=== PATIENT | male | born 1985 | race Caucasian/White ===

== ENCOUNTER 2021-10-06 21:33 | Emergency (ER) | payer OTHER ==
[2021-10-06 21:53] VITALS: RESP 16; TEMP 98.2
--- NOTE | 2021-10-06 22:28 | ED ---
General Adult HPI - General Source: patient Mode of arrival: ambulatory Limitations: no limitations <Thuy Delacruz - Last Filed: 10/07/21 01:19> <Azael Healy - Last Filed: 10/07/21 08:12> - General Chief complaint: Eye Problems Stated complaint: Eye pain Time Seen by Provider: 10/06/21 21:56 - History of Present Illness Initial comments: This 36-year-old female presenting from [place] for alcohol use disorder presents emergency Department with right eye pain since 10 AM. Patient states last night he fell sleep around 11:00 PM with his contacts in, waking up around 3 AM he noticed he still had his contacts in and remove them from bilateral eyes. Patient denies any pain at this time. Patient states when he woke up this morning he noticed some mild right eye pain, however patient states the pain has gotten increasingly worse throughout the day. Patient states he has not experienced any loss of vision, double vision, seeing stars/aura. Patient states his vision in his right eye does seem to be a little bit blurry. Patient denies any direct trauma to either eye. Patient states he is also been experiencing a little bit of runny nose along with a headache behind his right eye. Patient denies any chest pain, shortness of breath, abdominal pain, nausea, vomiting, 10 out of 10 headache, sore throat, cough, weakness, ear pain. Patient denies any abnormal fluid or eye drainage from either eye. Denies any crusting of eyelids. (Thuy Delacruz) - Related Data Previous Rx's Medication Instructions Recorded Artificial Tears-Hypromellose 1 drops RIGHT EYE TID #1 10/07/21 [Artificial Tear Drops] Ofloxacin 0.3% Ophth Soln [Ocuflox 1 - 2 drops RIGHT EYE QID 7 Days 10/07/21 Ophth Soln] #10 ml Timolol 0.5% Ophth Soln [Timoptic 1 drop RIGHT EYE BID #10 ml 10/07/21 0.5% Ophth Soln] Allergies Allergy/AdvReac Type Severity Reaction Status Date / Time No Known Allergies Allergy Verified 10/06/21 21:53 Review of Systems ROS Other: All systems not noted in ROS Statement are negative. <Thuy Delacruz - Last Filed: 10/07/21 01:19> ROS Other: All systems not noted in ROS Statement are negative. <Azael Healy Noemy - Last Filed: 10/07/21 08:12> ROS Statement: Those systems with pertinent positive or pertinent negative responses have been documented in the HPI. Past Medical History Past Medical History: Hypertension History of Any Multi-Drug Resistant Organisms: None Reported Past Surgical History: No Surgical Hx Reported Past Psychological History: No Psychological Hx Reported Smoking Status: Current some day smoker Past Alcohol Use History: Heavy Past Drug Use History: None Reported <Thuy Delacruz - Last Filed: 10/07/21 01:19> General Exam Limitations: no limitations General appearance: alert, in distress (Patient holding his right eye and teary- eyed stating he is in extreme pain) Head exam: Present: atraumatic, normocephalic, normal inspection Eye exam: Present: normal appearance (Bilateral conjunctival injection R>L. pain with extraocular movement to right eye. Pupils equal and reactive to light, however the light does increase patient's ocular pain), PERRL, EOMI. Absent: periorbital swelling, periorbital tenderness (Right eye pain to palpation just below the eye over cheekbone.) Pupils: Present: normal accommodation, other (Intraocular pressure of right eye was 22 and then 25. Pressure of left eye was 12. Visual acuity with glasses left eye 20/20 right eye 20/30 without glasses 20/100 bilateral. Slit-lamp to not reveal any corneal abrasions or foreign body in either eye) ENT exam: Present: mucous membranes moist Neck exam: Present: full ROM Respiratory exam: Present: normal lung sounds bilaterally. Absent: respiratory distress, wheezes, rales, rhonchi, stridor Cardiovascular Exam: Present: regular rate, normal rhythm, normal heart sounds. Absent: systolic murmur, diastolic murmur, rubs, gallop, clicks GI/Abdominal exam: Present: soft, normal bowel sounds. Absent: distended, tenderness, guarding, rebound, rigid Extremities exam: Present: full ROM. Absent: tenderness, normal capillary refill, pedal edema, joint swelling, calf tenderness Back exam: Present: full ROM. Absent: CVA tenderness (R), CVA tenderness (L), paraspinal tenderness, vertebral tenderness Neurological exam: Present: alert, oriented X3, CN II-XII intact Psychiatric exam: Present: normal affect, normal mood Skin exam: Present: warm, dry, intact, normal color. Absent: rash <NubiaThuy - Last Filed: 10/07/21 01:19> Course Vital Signs 10/06/21 10/07/21 21:49 07:03 Temperature 98.2 F Pulse Rate 88 72 Respiratory 16 16 Rate Blood Pressure 152/90 150/95 O2 Sat by Pulse 99 98 Oximetry Medical Decision Making <Thuy Delacruz - Last Filed: 10/07/21 01:19> <Azael eHaly - Last Filed: 10/07/21 08:12> - Medical Decision Making This 36-year-old male presents emergency Department with right eye pain that began this morning at 10 AM. This pain has increasingly gotten worse over the last few hours. I did perform visual acuity with left eye 20/20 and right eye 20/30. I did apply proparacaine which did relieve pain for a few minutes. On tyson lamp I did not see any corneal abrasion or foreign body present. Intraocular pressure right eye was 25 and left eye was 12. I did review this case with my attending, who suggested I call ophthalmology. We did page Dr. Torres and left to voicemails on his home phone. I did sign my patient out to at 1:20am- waiting to receive a call back from . Patient did have proparacaine drops in the room that I did inform he could use as needed in his right eye. (Thuy Delacruz) Patient's care was signed out to me by previous shift physician, Dr. Syed,. Briefly, patient is a 36-year-old male presents with approximately one day of right eye pain. Patient states he fell sleep with his contacts. States that his eyes red and runny. He allegedly had a fluorescein testing without any corneal issues. He has elevated intraocular pressure right compared to the left. There is a slight decrease in vision to the right eye compared to the left. At the time of signout patient had been in the emergency room for 9 hours and 30 minutes. I did evaluate the patient at 7:45 AM. Patient is subconjunctival is injected. He does have equal round pupils that are both reactive to light and accommodation. Normal extraocular movements. Patient's symptoms are improved with proparacaine. Spoke with Dr. Tai who allegedly wasn't rn corrections but decided to take the call on behalf of ophthalmology service. I did speak with Dr. Tai at 7:50 AM about the patient's case in detail. Dr. Tai requested patient be prescribed artificial tears, ofloxacin eyedrops and half percent similar eye drops 2 times a day. The patient should follow-up with ophthalmology on Saturday. Plan disposition was discussed with patient and 80 5 AM. Patient is agreeable. Told not to her contact lenses. He is notified that he is to use 3 different eye drops. And to follow-up with ophthalmology on Saturday. Return crash discussed. Patient is agreeable with plan and disposition. (Azael Healy) Disposition <Thuy Delacruz - Last Filed: 10/07/21 01:19> Is patient prescribed a controlled substance at d/c from ED?: No <Azael Healy - Last Filed: 10/07/21 08:12> Clinical Impression: Eye pain, Increased intraocular pressure Disposition: HOME SELF-CARE Condition: Fair Instructions (If sedation given, give patient instructions): Eye Pain (ED) Additional Instructions: Call to schedule an appointment with Dr. Tai. His number for his office is listed in her discharge paperwork. Please seek immediate medical attention if your symptoms worsen. You can call Dr. Tai's office or return back to the emergency department. Prescriptions: Artificial Tears-Hypromellose [Artificial Tear Drops] 1 drops RIGHT EYE TID #1 Ofloxacin 0.3% Ophth Soln [Ocuflox Ophth Soln] 1 - 2 drops RIGHT EYE QID 7 Days #10 ml Timolol 0.5% Ophth Soln [Timoptic 0.5% Ophth Soln] 1 drop RIGHT EYE BID #10 ml Referrals: Nagi Tai MD [STAFF PHYSICIAN] - 10/09/21
[2021-10-06] MEDS: PROPARACAINE 0.5% OPHTH DROPS 15 ML BTL BOTH EYES STA (22:34)
[2021-10-06] MEDS: KETOROLAC 15 MG/ML 1 ML VIAL IM STA (22:35)
[2021-10-07] MEDS ORDERED: TIMOLOL 0.5% OPHTH DROPS 5 ML BTL RIGHT EYE STA (00:19)
[2021-10-07 07:04] VITALS: BP 150/95; PULSE 72
[2021-10-07] MEDS: ACETAMINOPHEN TAB 325 MG TAB PO STA (07:09)
[2021-10-07] MEDS: IBUPROFEN 600 MG TAB PO STA (07:09)
[2021-10-07] MEDS ORDERED: LEVOFLOXACIN 0.5% OPHTH DROPS 5 ML BTL RIGHT EYE SCH (08:00)
[2021-10-07] MEDS ORDERED: TIMOLOL 0.5% OPHTH DROPS 5 ML BTL RIGHT EYE SCH (09:00)
[2021-10-07] MEDS: OFLOXACIN 0.3% OPHTH DROPS 5 ML BOTTLE RIGHT EYE SCH (09:10)
[2021-10-07] MEDS: ARTIFICIAL TEARS-HYPROMELLOSE DROPS 15 ML BTL RIGHT EYE PRN (09:11)
[2021-10-07] MEDS: TIMOLOL 0.5% OPHTH DROPS 5 ML BTL RIGHT EYE STA (09:12)
== END 2021-10-07 09:31 | disposition home or self-care (01) ==
LOC: EC 21:33
DX: H40.051 Ocular hypertension, right eye (principal); F17.200 Nicotine dependence, unspecified, uncomplicated; Z72.89 Other problems related to lifestyle
CPT/HCPCS: 99283; 96372; J1885